=== PATIENT | male | born 1980 | race Caucasian/White ===

== ENCOUNTER 2020-05-13 20:28 | Emergency (ER) | payer OTHER, SELFPAY ==
[~2020-05-13] VITALS: Ht 182.9 cm; Wt 95.3 kg
[2020-05-13 20:28] VITALS: BP_SYST 140
--- NOTE | 2020-05-13 22:50 | NUR ---
Patient BIB by family. C/O Anxiety x today. Patient had test positive COVID-19 since Thursday. Patient states "feel anxious since knew the test." A/O,X4, no SOB, vss, Oxygen sat 99%.
--- NOTE | 2020-05-13 22:51 | NUR ---
ER Dr. Engel at bedside examining patient.
[2020-05-13] MEDS ORDERED: LORazepam 1 MG TABLET PO ONE (23:00)
--- NOTE | 2020-05-13 23:27 | NUR ---
Swabs COVID-19 Rapid and send to lab.
[2020-05-14 00:34] VITALS: BP_SYST 122
--- NOTE | 2020-05-14 00:34 | NUR ---
Patient given written and verbal discharge instructions and verbalizes understanding. ER MD discussed with patient the results and treatment provided. Patient in stable condition. ID arm band removed. No Rx given. Patient educated on pain management and to follow up with PMD. Pain Scale 0/10. Opportunity for questions provided and answered. Medication side effect fact sheet provided.
== END 2020-05-14 00:34 | disposition home or self-care (01) ==
LOC: SED 20:28
DX: F41.9 Anxiety disorder, unspecified (principal); Z20.822 Contact with and (suspected) exposure to COVID-19
CPT/HCPCS: 36415; 71045; 99284

== ENCOUNTER 2020-06-07 11:59 | Emergency (ER) | payer OTHER, SELFPAY ==
[~2020-06-07] VITALS: Ht 182.9 cm; Wt 95.3 kg
[2020-06-07 12:00] VITALS: BP_SYST 136
[2020-06-07] MEDS ORDERED: LORazepam 1 MG TABLET PO ONE (12:45)
[2020-06-07 12:56] VITALS: BP_SYST 136
== END 2020-06-07 12:57 | disposition home or self-care (01) ==
LOC: SED 11:59
DX: F41.9 Anxiety disorder, unspecified (principal); I10 Essential (primary) hypertension; F12.90 Cannabis use, unspecified, uncomplicated
CPT/HCPCS: 99283

== ENCOUNTER 2020-06-15 14:44 | Emergency (ER) | payer OTHER, SELFPAY ==
[~2020-06-15] VITALS: Ht 182.9 cm; Wt 93.0 kg
[2020-06-15 14:55] VITALS: BP_SYST 135
--- NOTE | 2020-06-15 14:55 | NUR ---
Patient to ER bed 5 to gown for evaluation. Side rails up.
--- NOTE | 2020-06-15 14:56 | NUR ---
ER at bedside examining patient.
--- NOTE | 2020-06-15 15:00 | NUR ---
pt arrives via BLS. Per EMS pt was picked up at home. Pt states that he has been feeling disoriented and has not been feeling well since he tested positive for Covid on May 08. Pt stated that he called ambulance from a parking lot after consuming one beer
--- NOTE | 2020-06-15 15:15 | NUR ---
pt getting a CXR at the bedside
[2020-06-15 15:21] LABS: BASOPHILS # (AUTO) 0.1 K/uL (0.0-0.2); BASOPHILS % (AUTO) 0.8 % (0.0-2.0); EOSINOPHILS # (AUTO) 0.1 K/uL (0.0-0.4); EOSINOPHILS % (AUTO) 1.7 % (0.0-4.0); HEMATOCRIT 44.3 % (36-54); HEMOGLOBIN 15.6 g/dL (14.0-18.0); LYMPHOCYTES # (AUTO) 1.9 K/uL (1.0-5.5); LYMPHOCYTES % (AUTO) 29.4 % (20.5-51.5); MEAN CORPUSCULAR HEMOGLOBIN 32 pg (27-31); MEAN CORPUSCULAR HGB CONC 35 % (32-36); MEAN CORPUSCULAR VOLUME 92 fL (79.0-98.0); MONOCYTES # (AUTO) 0.5 K/uL (0.0-1.0); MONOCYTES % (AUTO) 8.1 % (1.7-9.3); NEUTROPHILS # (AUTO) 3.9 K/uL (1.8-7.7); PLATELET COUNT (AUTO) 285 K/uL (130-430); RED BLOOD CELL COUNT(AUTO) 4.82 MIL/uL (4.2-6.2); RED CELL DISTRIBUTION WIDTH 12.6 % (9.0-15.0); WHITE BLOOD COUNT (AUTO) 6.5 K/uL (4.8-10.8)
[2020-06-15 15:32] LABS: ANION GAP 8 (5-15); CALCIUM 9.7 mg/dL (8.4-11.0); CHLORIDE 99 mmol/L (98-107); GLUCOSE 134 mg/dL (70-99); POTASSIUM 3.3 mmol/L (3.5-5.1); SODIUM SERUM 135 mmol/L (136-145); UREA NITROGEN, BLOOD 16 mg/dL (8-21)
[2020-06-15 15:33] LABS: GFR AFRICAN AMERICAN 106 mL/min (>90)
[2020-06-15 15:34] LABS: ACETONE, SERUM NEGATIVE (NEGATIVE)
[2020-06-15 15:37] LABS: ALANINE AMINOTRANSFERASE 31 U/L (12-78); ALBUMIN 4.1 g/dL (3.4-4.8); ALCOHOL, BLOOD < 3 mg/dL (<10); AMYLASE 41 U/L (0-100); ASPARTATE AMINOTRANSFERASE 18 U/L (10-37); LIPASE 65 U/L (73-393); TOTAL BILIRUBIN 0.4 mg/dL (0.0-1.0)
[2020-06-15] MEDS ORDERED: LORA-259 PO (15:48)
[2020-06-15 16:04] VITALS: BP_SYST 135
--- NOTE | 2020-06-15 16:05 | NUR ---
Patient given written and verbal discharge instructions and verbalizes understanding. ER MD discussed with patient the results and treatment provided. Patient in stable condition. ID arm band removed. Patient educated on pain management and to follow up with PMD. Pain Scale 2/10. Opportunity for questions provided and answered. Medication side effect fact sheet provided.
== END 2020-06-15 16:05 | disposition home or self-care (01) ==
LOC: SED 14:44
DX: I16.0 Hypertensive urgency (principal); F41.9 Anxiety disorder, unspecified
CPT/HCPCS: 36415; 71045; 80053; 82009; 82150; 82550; 83605; 83690; 84484; 85025; 85610; 85730; 93005; 99285; G0482

== ENCOUNTER 2020-07-31 10:04 | Emergency (ER) | payer OTHER, SELFPAY ==
[~2020-07-31] VITALS: Ht 182.9 cm; Wt 93.0 kg
[~2020-07-31 10:04] MED LIST: LORA-259 PO
[2020-07-31 10:26] VITALS: BP_SYST 132
[2020-07-31] MEDS ORDERED: LOSARTAN POTASSIUM 25 MG TABLET PO ONE (11:30)
[2020-07-31] MEDS ORDERED: LOSA25TA3 PO (11:35)
[2020-07-31 12:02] VITALS: BP_SYST 138
[2020-08-01] MEDS ORDERED: LOSARTAN POTASSIUM 25 MG TABLET PO SCH (09:00)
== END 2020-07-31 12:02 | disposition home or self-care (01) ==
LOC: SED 10:04
DX: I10 Essential (primary) hypertension (principal); F41.9 Anxiety disorder, unspecified
CPT/HCPCS: 93005; 99283